=== PATIENT | female | born 1975 | race Two or more races ===

== ENCOUNTER 2022-02-06 14:17 | Emergency (ER) | payer MEDICAID, OTHER ==
[~2022-02-06] VITALS: Ht 177.8 cm; Wt 113.4 kg
[2022-02-06] MEDS ORDERED: LORazepam 2MG/ML-1ML VIAL IV ONE (15:45)
[2022-02-06 16:06] LABS: Basophils # (auto) 0.1 10 ^3/uL (0-0.2); Basophils % (auto) 0.8 % (0.0-2.0); Eosinophils # (auto) 0.1 10 ^3/uL (0-0.8); Eosinophils % (auto) 1.4 % (0.0-7.0); Hematocrit 44.3 % (36.0-46.0); Hemoglobin 15.3 g/dL (12.2-16.2); Lymphocytes # (auto) 1.2 10 ^3/uL (0.4-5.4); Lymphocytes % (auto) 11.7 % (10.0-50.0); Mean Corpuscular Hemoglobin 30.4 pg (28.0-32.0); Mean Corpuscular Hgb Conc. 34.5 g/dL (32.0-36.0); Mean Corpuscular Volume 88.1 fL (80.0-100.0); Monocytes # (auto) 0.6 10 ^3/uL (0-1.3); Monocytes % (auto) 5.4 % (0.0-12.0); Neutrophils # (auto) 8.4 10 ^3/uL (1.6-8.6); Neutrophils % (auto) 80.7 % (37.0-80.0); Red Blood Cells 5.03 10^6/uL (4.0-5.20); Red Cell Distribution Width 13.7 % (11.8-14.3); White Blood Cell 10.4 10^3/uL (4.4-10.8)
[2022-02-06 16:21] LABS: Alanine Aminotransferase 51 U/L (13-56); Albumin 3.9 g/dL (3.4-5.0); Anion Gap 8 (5-15); Aspartate Aminotransferase 24 U/L (15-37); BUN/Creatinine Ratio 14.3; Blood Urea Nitrogen 16 mg/dL (7-18); Calcium 9.4 mg/dL (8.5-10.1); Carbon Dioxide 26 mmol/L (21-32); Chloride 105 mmol/L (98-107); GFR African American 67 mL/min; GFR Non-African American 55 mL/min; Glucose 194 mg/dL (74-106); Potassium 4.4 mmol/L (3.5-5.1); Sodium 139 mmol/L (136-145)
[2022-02-06 16:23] LABS: Urine Bacteria MOD /hpf (None Seen); Urine Blood Negative /uL (Negative); Urine Specific Gravity 1.022 (1.001-1.035); Urine WBC 3 /hpf (0 - 5)
[2022-02-06 16:29] LABS: Alkaline Phosphatase 81 U/L (45-117); Bilirubin, Total 0.4 mg/dL (0.2-1.0); Total Protein 7.4 g/dL (6.4-8.2)
[2022-02-06] MEDS ORDERED: ONDANSETRON HCL 4 MG/2 ML VIAL IV ONE (19:30)
[2022-02-06] MEDS ORDERED: KETOROLAC TROMETH 30 MG/ML 1ML VIAL IV ONE (19:30)
[2022-02-06] MEDS ORDERED: SODIUM CHLORIDE 0.9% 1,000 ML IV ONE ×2 (19:30)
[2022-02-06 20:17] LABS: Alcohol, Urine < 3.0 mg/dL (0-10); Amphetamine Screen, Urine NEGATIVE (NEGATIVE); Barbiturate Scree,Urine NEGATIVE (NEGATIVE); Benzodiazephine Screen, Urine NEGATIVE (NEGATIVE); Cannabinoid Screen, Urine NEGATIVE (NEGATIVE); Cocaine Screen, Urine NEGATIVE (NEGATIVE); Opiate Scree,Urine NEGATIVE (NEGATIVE); Phencyclidine Screen, Urine NEGATIVE (NEGATIVE)
[2022-02-06] MEDS ORDERED: ONDA-144 PO (22:01)
[2022-02-06 22:19] VITALS: BP 141/99
== END 2022-02-06 22:10 | disposition home or self-care (01) ==
LOC: ER 14:49
DX: R00.2 Palpitations (principal); I10 Essential (primary) hypertension; E11.9 Type 2 diabetes mellitus without complications; R51.9 Headache, unspecified
CPT/HCPCS: 36415; 70450; 71045; 74176; 76705; 80053; 80307; 81001; 83690; 84443; 84484; 85025; 93005; 96361; 96374; 96375; 99285; J1885; J2405; J7030